=== PATIENT | male | born 1965 | race Caucasian/White ===

== ENCOUNTER 2018-04-23 00:29 | Emergency (ER) | payer OTHER, MEDICAID ==
[2018-04-23] MEDS ORDERED: OLANZapine DISINTEGR 10 MG TAB ONE (00:45)
[2018-04-23 00:46] LABS: PLATELET COUNT 303 10^3/uL (150-400)
[2018-04-23] MEDS ORDERED: OLANZapine DISINTEGR 10 MG TAB PO ONE (00:48)
--- NOTE | 2018-04-23 05:16 | EDPHY ---
H & P Stated Complaint: CP, BI POLAR Source: Patient, EMS Exam Limitations: No limitations - Personal History Current Tetanus/Diphtheria Vaccine: Yes Current Tetanus Diphtheria and Acellular Pertussis (TDAP): Yes - Medical/Surgical History Hx Asthma: No Hx Chronic Respiratory Disease: No Hx Diabetes: No Hx Cardiac Disease: No Hx Renal Disease: No Hx Cirrhosis: No Hx Alcoholism: No Hx HIV/AIDS: No Hx Splenectomy or Spleen Trauma: No Other PMH: BIPOLAR - Social History Smoking Status: Current every day smoker Time Seen by Provider: 04/23/18 00:35 HPI/ROS: HPI The patient presents with bizarre behavior, brought in by paramedics. The patient was found knocking on a stranger's door in the [facility] in [place] just prior to arrival. He reported he pole were chasing him and that he was being followed. He was noted to have pressured speech. 911 was called. The patient says that he is hearing voices. He denies that he is feeling suicidal. He says he is supposed to be taking Zyprexa for bipolar disorder though is not taking it currently. He is reporting migratory chest pain which is sharp in nature to the paramedics.. He has 1 visit to [facility] in July for multiple vague complaints. He has never been to our emergency department before. REVIEW OF SYSTEMS 10 systems were reviewed and negative with the exception of the elements mentioned in the history of present illness. PMHx: Bipolar disorder Soc Hx: Homeless, resides in [place], occasional methamphetamine use per his report, occasional marijuana use PHYSICAL General Appearance: Alert, no distress, disheveled with poor hygiene Eyes: Pupils equal and round no pallor or injection ENT, Mouth: Mucous membranes moist Respiratory: There are no retractions, lungs are clear to auscultation Cardiovascular: Regular rate and rhythm Gastrointestinal: Abdomen is soft and non-tender, no masses, bowel sounds normal Neurological: A&O, moves all extremities Skin: Warm and dry, no rashes Musculoskeletal: Neck is supple non tender Extremities: symmetrical, full range of motion Psychiatric: Patient is mildly agitated, oriented x3, has pressured speech and is complaining that people are chasing him (Cathleen Yoon) Constitutional: Initial Vital Signs Temperature (C) 36.7 C 04/23/18 00:34 Heart Rate 75 04/23/18 00:34 Respiratory Rate 18 04/23/18 00:34 Blood Pressure 117/77 04/23/18 00:34 O2 Sat (%) 97 04/23/18 00:34 O2 Delivery Mode Room Air Allergies/Adverse Reactions: No Known Allergies Allergy (Unverified 04/23/18 00:34) Home Medications: Medication Instructions Recorded Zyprexa 04/23/18 Medical Decision Making ED Course/Re-evaluation: I took over care of this patient at 7:00 a.m.. He is currently here voluntarily. He was knocking on people's doors last night in [place] and displaying bizarre behavior. He has been using methamphetamine. He is to be reassessed when more appropriately sober. 7:30 p.m., this patient is now awake and acting appropriately. He is asking for breakfast. He is not suicidal. He states that he feels comfortable being discharged. He will be re-evaluated again after he eats breakfast. 8:30 a.m., the patient was re-evaluated. He is responding to questions appropriately. He is not suicidal. He feels comfortable being discharged. I discussed the liability of methamphetamine and drug abuse. Follow-up and return to emergency department precautions reviewed with him. All of his questions were answered. He was discharged from the emergency department in good condition. (Bassam Gonzalez) Differential Diagnosis: 52-year-old homeless man with history of bipolar disorder, on Zyprexa presents brought in by ambulance with auditory hallucinations and delusions that people are chasing him, found knocking on a stranger's door after running [place] the [place]. He is not currently on an M1 hold as he is here voluntarily and would like to be evaluated. He is now calm. We have given him a dose of Zyprexa. Labs were checked and did reveal an anion gap acidosis with slight elevated creatinine. I suspect this is related to dehydration and the patient was offered fluids by mouth. Repeat chemistries had normalized with improvement in creatinine an anion gap. U tox was positive for amphetamine and marijuana. He does have a mild leukocytosis which I suspect is a stress response. He is requesting mental health evaluation. In the emergency department, the patient was allowed to rest for several hours. When I interviewed him again at approximately 6:00 a.m. He was more lucid though not appropriate for discharge. I feel most of his symptoms are related to methamphetamine intoxication. We will continue to monitor him here. At 7:00 a.m., I anticipate the case will be signed out to the oncoming provider Dr. Gonzalez. (Cathleen Yoon) - Data Points Laboratory Results: Laboratory Results 04/23/18 00:35 04/23/18 05:26 04/23/18 04/23/18 04/23/18 05:26 00:35 00:35 WBC RBC Hgb Hct MCV MCH MCHC RDW Plt Count MPV Neut % (Auto) Lymph % (Auto) Maury % (Auto) Eos % (Auto) Baso % (Auto) Nucleat RBC Rel Count Absolute Neuts (auto) Absolute Lymphs (auto) Absolute Monos (auto) Absolute Eos (auto) Absolute Basos (auto) Absolute Nucleated RBC Immature Gran % Immature Gran # RBC/WBC/PLT Morphology Platelet Estimate Sodium 139 mEq/L mEq/L 144 mEq/L mEq/L (135-145) (135-145) Potassium 3.5 mEq/L mEq/L 3.3 mEq/L mEq/L (3.3-5.0) (3.3-5.0) Chloride 106 mEq/L mEq/L 106 mEq/L mEq/L (97-110) (97-110) Carbon Dioxide 18 mEq/l L mEq/l 16 mEq/l L mEq/l (22-31) (22-31) Anion Gap 15 mEq/L H mEq/L 22 mEq/L H mEq/L (6-14) (6-14) BUN 33 mg/dL H mg/dL 33 mg/dL H mg/dL (7-23) (7-23) Creatinine 1.2 mg/dL mg/dL 1.6 mg/dL H mg/dL (0.7-1.3) (0.7-1.3) Estimated GFR > 60 45 Glucose 125 mg/dL H mg/dL 95 mg/dL mg/dL (70-100) (70-100) Calcium 9.4 mg/dL mg/dL 9.9 mg/dL mg/dL (8.5-10.4) (8.5-10.4) Urine Opiates Screen NEGATIVE (NEGATIVE) Urine Barbiturates NEGATIVE (NEGATIVE) Ur Phencyclidine Scrn NEGATIVE (NEGATIVE) Ur Amphetamine Screen NON-NEGATIVE H (NEGATIVE) U Benzodiazepines Scrn NEGATIVE (NEGATIVE) Urine Cocaine Screen NEGATIVE (NEGATIVE) U Marijuana (THC) Screen NON-NEGATIVE H (NEGATIVE) Ethyl Alcohol < 10 mg/dL mg/dL (0-10) 04/23/18 00:35 WBC 16.61 10^3/uL H 10^3/uL (3.80-9.50) RBC 5.04 10^6/uL 10^6/uL (4.40-6.38) Hgb 15.5 g/dL g/dL (13.7-17.5) Hct 44.9 % % (40.0-51.0) MCV 89.1 fL fL (81.5-99.8) MCH 30.8 pg pg (27.9-34.1) MCHC 34.5 g/dL g/dL (32.4-36.7) RDW 13.2 % % (11.5-15.2) Plt Count 303 10^3/uL 10^3/uL (150-400) MPV 9.9 fL fL (8.7-11.7) Neut % (Auto) 81.4 % H % (39.3-74.2) Lymph % (Auto) 4.7 % L % (15.0-45.0) Maury % (Auto) 13.1 % H % (4.5-13.0) Eos % (Auto) 0.1 % L % (0.6-7.6) Baso % (Auto) 0.3 % % (0.3-1.7) Nucleat RBC Rel Count 0.0 % % (0.0-0.2) Absolute Neuts (auto) 13.52 10^3/uL H 10^3/uL (1.70-6.50) Absolute Lymphs (auto) 0.78 10^3/uL L 10^3/uL (1.00-3.00) Absolute Monos (auto) 2.18 10^3/uL H 10^3/uL (0.30-0.80) Absolute Eos (auto) 0.02 10^3/uL L 10^3/uL (0.03-0.40) Absolute Basos (auto) 0.05 10^3/uL 10^3/uL (0.02-0.10) Absolute Nucleated RBC 0.00 10^3/uL 10^3/uL (0-0.01) Immature Gran % 0.4 % % (0.0-1.1) Immature Gran # 0.07 10^3/uL 10^3/uL (0.00-0.10) RBC/WBC/PLT Morphology TNP Platelet Estimate TNP Sodium Potassium Chloride Carbon Dioxide Anion Gap BUN Creatinine Estimated GFR Glucose Calcium Urine Opiates Screen Urine Barbiturates Ur Phencyclidine Scrn Ur Amphetamine Screen U Benzodiazepines Scrn Urine Cocaine Screen U Marijuana (THC) Screen Ethyl Alcohol Medications Given: Discontinued Medications Olanzapine (Zyprexa Zydis) 10 mg PO EDNOW ONE Stop: 04/23/18 00:49 Last Admin: 04/23/18 00:49 Dose: 10 mg Departure - Departure Disposition: Home, Routine, Self-Care Clinical Impression: Methamphetamine abuse Bipolar disorder Qualifiers: Active/Remission status: currently active Current bipolar episode type: mixed Current episode severity: unspecified Qualified Code(s): F31.60 - Bipolar disorder, current episode mixed, unspecified Condition: Good Instructions: Methamphetamine Abuse (ED), Bipolar Disorder (ED) Additional Instructions: Read and follow provided instructions. Follow-up with your primary care physician in 1-2 days for re-evaluation as needed. Take your medication as prescribed. Return to the emergency department for worsening symptoms or other serious concerns. Referrals: NONE *PRIMARY CARE P,. [Primary Care Provider] - As per Instructions
[2018-04-23 08:50] VITALS: BP 132/78
== END 2018-04-23 08:50 | disposition home or self-care (01) ==
LOC: EEVIPCON 00:29
DX: F15.10 Other stimulant abuse, uncomplicated (principal); F31.60 Bipolar disorder, current episode mixed, unspecified; F17.200 Nicotine dependence, unspecified, uncomplicated; Z59.0 Homelessness
CPT/HCPCS: 80305; G0480

== ENCOUNTER 2018-05-28 01:59 | Emergency (ER) | payer MEDICAID ==
--- NOTE | 2018-05-28 02:27 | EDPHY ---
H & P Stated Complaint: FEELING COLD Time Seen by Provider: 05/28/18 02:14 HPI/ROS: HPI The patient presents with feeling cold with concern for frostbite, brought in by ambulance from [place] where he is camping outdoors in cold temperatures. He has been sleeping in his tent with boots and socks on. His feet became very cold tonight in his socks were somewhat wet. He developed tingling in both of his feet and called 911. He says he has a large tent which is difficult to heat and he has a hard time staying warm at night. He does not have any foot pain. REVIEW OF SYSTEMS 10 systems were reviewed and negative with the exception of the elements mentioned in the history of present illness. PMHx: Bipolar disorder Soc Hx: Homeless, camping in [place], cigarette smoker PHYSICAL General Appearance: Alert, no distress Eyes: Pupils equal and round no pallor or injection ENT, Mouth: Mucous membranes moist Respiratory: There are no retractions, lungs are clear to auscultation Cardiovascular: Regular rate and rhythm Gastrointestinal: Abdomen is soft and non-tender, no masses, bowel sounds normal Neurological: A&O, moves all extremities Skin: Warm and dry, no rashes Extremities: symmetrical, full range of motion, toes bilaterally are pink, warm , have brisk capillary refill, full range of motion, no rash Psychiatric: Patient is oriented X 3, there is no agitation Source: Patient, EMS Exam Limitations: No limitations - Personal History Current Tetanus Diphtheria and Acellular Pertussis (TDAP): Yes - Medical/Surgical History Hx Asthma: No Hx Chronic Respiratory Disease: No Hx Diabetes: No Hx Cardiac Disease: No Hx Renal Disease: No Hx Cirrhosis: No Hx Alcoholism: No Hx HIV/AIDS: No Hx Splenectomy or Spleen Trauma: No Other PMH: BIPOLAR - Social History Smoking Status: Current every day smoker Constitutional: Initial Vital Signs Temperature (C) 36.6 C 05/28/18 02:02 Heart Rate 100 05/28/18 02:02 Respiratory Rate 16 05/28/18 02:02 Blood Pressure 132/88 H 05/28/18 02:02 O2 Sat (%) 92 05/28/18 02:02 O2 Delivery Mode Room Air Allergies/Adverse Reactions: No Known Allergies Allergy (Unverified 05/28/18 02:01) Home Medications: Medication Instructions Recorded Zyprexa 04/23/18 Medical Decision Making Differential Diagnosis: 52-year-old homeless man presents with paresthesias of his feet, he is concerned about frostbite. Here, his oral temperature is normal. His feet appear normal to me with no signs of frostbite or trench foot. I discussed going to the [facility], wearing warm and dry socks. He will be discharged home. Departure - Departure Disposition: Home, Routine, Self-Care Clinical Impression: Paresthesia of both feet Exposure to environmental cold Qualifiers: Encounter type: initial encounter Qualified Code(s): T69.9XXA - Effect of reduced temperature, unspecified, initial encounter Condition: Good Instructions: Frostbite (ED) Additional Instructions: Please return to the ER if your worse in any way. I do recommend going to the warming [facility] if it is too cold to camp. Referrals: [facility],. [Clinic] - As per Instructions
[2018-05-28 05:23] VITALS: BP 130/84
== END 2018-05-28 05:23 | disposition home or self-care (01) ==
LOC: EDUNIT#
DX: R20.2 Paresthesia of skin (principal); T69.9XXA Effect of reduced temperature, unspecified, initial encounter; X31.XXXA Exposure to excessive natural cold, initial encounter; F32.9 Major depressive disorder, single episode, unspecified; F17.200 Nicotine dependence, unspecified, uncomplicated; Z59.0 Homelessness

== ENCOUNTER 2018-07-27 03:05 | Emergency (ER) | payer MEDICAID ==
--- NOTE | 2018-07-27 03:14 | EDPHY ---
H & P Source: Patient, Police - Medical/Surgical History Hx Asthma: No Hx Chronic Respiratory Disease: No Hx Diabetes: No Hx Cardiac Disease: No Hx Renal Disease: No Hx Cirrhosis: No Hx Alcoholism: No Hx HIV/AIDS: No Hx Splenectomy or Spleen Trauma: No Other PMH: BIPOLAR - Social History Smoking Status: Current every day smoker Time Seen by Provider: 07/27/18 03:14 HPI/ROS: HPI CHIEF COMPLAINT: Paranoid. M1 hold by police. HISTORY OF PRESENT ILLNESS: 52-year-old male, presents to the emergency room by police for being paranoid and has underlying bipolar disorder. He is placed on M1 hold by [facility]. He was up in [place] and was cold and found outside near the school, acting paranoid. He called 911 multiple times stating that people are following him. [facility] Police brought him on an m1 hold. Past Medical History: Significant medical history for bipolar disorder Past Surgical History: No recent surgery Social History: Patient is homeless, smokes tobacco. Family History: Noncontributory ROS REVIEW OF SYSTEMS: 10 Systems were reviewed and negative with the exception of the elements mentioned in the history of present illness. Exam Constitutional triage nursing summary reviewed, vital signs reviewed, awake/ alert. Eyes normal conjunctivae and sclera, EOMI, PERRLA. HENT normal inspection, atraumatic, moist mucus membranes, no epistaxis, neck supple/ no meningismus, no raccoon eyes. Respiratory clear to auscultation bilaterally, normal breath sounds, no respiratory distress, no wheezing. Cardiovascular rate normal, regular rhythm, no murmur, no edema, distal pulses normal. Gastrointestinal soft, non-tender, no rebound, no guarding, normal bowel sounds, no distension, no pulsatile mass. Genitourinary no CVA tenderness. Musculoskeletal no midline vertebral tenderness, full range of motion, no calf swelling, no tenderness of extremities, no meningismus, good pulses, neurovascularly intact. Skin pink, warm, & dry, no rash, skin atraumatic. Neurologic awake, alert and oriented x 3, AAOx3, moves all 4 extremities equally, motor intact, sensory intact, CN II-XII intact, normal cerebellar, normal vision, normal speech. Psychiatric normal mood/affect. Heme/Lymph/Immune no lymphadenopathy. Differential Diagnosis: Includes but is not limited to in a particular order underlying mood disorder, bipolar disorder, paranoia, methamphetamine intoxication Medical Decision Making: Plan for this patient he is on M1 hold by police. He will need blood draw for medical clearance. Will need mental health evaluation this morning. Re-evaluation: Patient's drug screen is positive for marijuana and methamphetamine. 0700AM: No acute events overnight. Patient is on M1 hold. Patient noted be positive for methamphetamine. Will need mental health evaluation later this morning. Signed over at 7:[address] Rodriguez ([facility]) Constitutional: Initial Vital Signs Temperature (C) 36.6 C 07/27/18 03:08 Heart Rate 105 H 07/27/18 03:08 Respiratory Rate 20 07/27/18 03:08 Blood Pressure 128/96 H 07/27/18 03:08 O2 Sat (%) 96 07/27/18 03:08 O2 Delivery Mode Room Air Allergies/Adverse Reactions: No Known Allergies Allergy (Unverified 05/28/18 02:01) Home Medications: Medication Instructions Recorded Zyprexa 04/23/18 Medical Decision Making Other Provider: I assumed care of the patient at 7:00 a.m. in the morning. The patient is turned over to Dr. Hyatt at shift change pending psychiatric disposition. (Ricci Rodriguez) 3:50 p.m. the patient has been evaluated. Dr. Lovett will lift the hold. ( Víctor Hyatt) - Data Points Laboratory Results: Laboratory Results 07/27/18 03:26 07/27/18 03:26 Departure - Departure Disposition: Home, Routine, Self-Care Clinical Impression: Methamphetamine abuse Bipolar disorder Qualifiers: Active/Remission status: currently active Current bipolar episode type: depressed Current episode severity: mild Qualified Code(s): F31.31 - Bipolar disorder, current episode depressed, mild Condition: Good Instructions: Polysubstance Abuse (ED) Referrals: NONE *PRIMARY CARE P,. [Primary Care Provider] - As per Instructions [facility],. [Clinic] - As per Instructions
[2018-07-27 03:38] LABS: PLATELET COUNT 340 10^3/uL (150-400)
--- NOTE | 2018-07-27 16:02 | ASMTTLCEVL ---
TLC Evaluation - Basic Information Evaluation Start Date and 07/27/2018 02:00 PM Time Hospital Status Answers: M1 Hold 72-hr M1 Hold Start Date 07/27/2018 02:00 AM and Time Patient statement Notes: "People are trying to kill me." Narrative Notes: The patient is a 52 y/o male, single, unemployed, with a hx of Schizoaffective d/o, Bipolar type. He is homeless and living in [facility]; occasionally staying in [place]. The patient arrived via EMS on an M1 hold placed by police after patient "Believes he is being followed and going to be killed by voices that followed him around [facility]. Also, believes that people stole his social security info and hacked his phone. Temp and west october 31 degree with strong wind." The patient stated that he "was cold." The patient endorsed chronic suicidal ideation; he denied intent nor does he have a plan. He denied homicidal ideation; he reported that he would have to defend himself if people try to kill him. The patient perseverated on his SSI including financial concerns that his "credentials were stolen." His speech was clear, coherent, and organized. The patient requested to go to [facility] via Medicaid cab. The patient stated commitment or ability to keep self safe and denied thoughts of self harm or harm to others. The patient expressed a desire to f/u with [facility]. At the time of initial utox testing in the ed @ 3:26 the patients was positive for amphetamine and thc. Diagnosis History Notes: The patient reported a dx hx of Schizoaffective d/o, Bipolar type. He reported outpatient treatment with [facility] and [facility]. The patient reported that he knows the voices are "real." Prior suicide attempts Notes: The patient reported "6-7 suicide attempts; most recently "years ago; pills." Prior hospitalizations Notes: The patient endorsed multiple prior hospitalizations for ; most recently "one month ago." Treatment Responses Notes: Unable to assess History of violence Notes: The patient denied any homicidal ideation or previous hx of violence. Therapist: Unknown Psychiatrist: Unknown Medications (name, dosage, route, freq uency) Notes: Zyprexa, 10mg, once daily (HS), PO Allergies/Reaction Notes: No known allergies Sleep Notes: The patient reported that he is "sleeping alot." Appetite Notes: The patient reported that he is "eating alot." Medical/Surgical history Notes: The patient denied any significant medical/surgical hx. Substance use history (frequency, intensity, his tory, duration) Notes: The patient reported that he uses methamphetamine "occasionally." The amount varies; "very little, it doesn't take much... buy a quarter.. do a nickel or a dime. I don't have the tolerance I once did." The last time the patient used meth was "within the last few days." The patient reported using thc daily; a couple of joints. He reported that he last used thc 07/26/18. Family composition Notes: The patient stated, "I don't have any. I don't associate with any." Need for family Answers: No participation in patient's care Family psychiatric/substance abuse history Notes: The patient reported that his "brother and cousin" hx use "anything and everything." The patient reported that his cousin by suicide; overdosing on his medications for Bipolar d/o. Developmental history Notes: The patient denied any developmental issues or learning disabilities. The patient denied ADD or ADHD. The patient denied any TBIs, concussions, or LOC.The patient denied any physical abuse, emotional abuse, or sexual abuse. The patient endorsed having achieved normal developmental milestones. The patient reported that he was raised in [place]. Abuse concerns Answers: None Marital status/children Notes: The patient is single. He reported having children, "way back when" but having "not seen them in years." Living situation Notes: The patient is homeless. Sexual history/orientation Notes: The patient reported he is heterosexual and he is not currently sexually active. Peer support/family strengths Notes: The patient denied having a supportive peer group. Education level/history Notes: The patient's education level/hx are unknown. Work history Notes: The patient is unemployed. The patient receives SSI for his mh dx. Notes: no known affiliation Legal Notes: The patient denied any legal issues. Catholic/Spiritual Notes: The patient reported none that would interfere with treatment. Leisure Notes: The patient stated, "nothing really." Collateral Notes: The collateral data was obtained from current and previous [facility] ed records/staff, 27-65 M1, and [facility] report/records/staff. Patient's strengths Answers: Motivated for Treatment (Please select at least TWO strengths): Willingness [facility] Evaluation - Mental Status Exam Appearance: Answers: Appropriate Unclean Neat Eye Contact: Answers: Avoiding Intermittent Mood: Answers: Elevated Euthymic Affect: Answers: Anxious Calm Guarded Relaxed Behavior: Answers: Appropriate Cooperative Anxious Guarded Talkative Speech: Answers: Relevant Logical Clear Coherent Dramatic Thought Process: Answers: Organized Oriented Alert Goal Oriented Paranoid Tangential Insight: Answers: Fair Judgement: Answers: Fair Hallucinations: Answers: Auditory Delusions: Answers: Paranoid Ideation Current Stage of Change Answers: Precontemplation Pt reported to have Answers: No suicidal/self-injuring ideation/behavior? Pt reported to be making Answers: No suicidal/self-injuring threats? Pt reported to have Answers: No aggression/assault ideation/behavior? Pt reported to be making Answers: No aggression/assault threats? Pt exhibits inability to Answers: No care for self/grave disability? Ideation/behavior is Answers: Yes chronic? Patient has a specific Answers: No plan? Pt has access to means to Answers: No execute the plan? Ideation involves Answers: No serious/lethal intent? Ideation has Answers: Yes delusional/hallucinatory content? History of Answers: Yes suicidal/self-injuring ideation, behavior, or threats? History of Answers: Yes aggressive/assaultive ideation, behavior, or threats? History of serious Answers: No physical harm to self/others while in treatment setting? [facility] Evaluation - Suicide/Homicide Risk Suicide Risk Factors: Answers: < 20 or > 40 Years of Age Financial Difficulties Hx of Suicide Attempt by Family Member Inadequate Social Support Prior Suicide Attempt(s) Schizoaffective Disorder Single Unstable Living Situation Homicide/violence risk Answers: Heavy Drug Use factors: Current Suicidal Answers: No Ideation? Current Suicidal Ideation Answers: Yes in the Past 48 Hours? Current Suicidal Ideation Answers: No in the Past Month? Current Suicidal Answers: No Ideation, Worst Ever? Suicide Internal Answers: Frustration Tolerance Protective Factors: Compa with Stress Suicide External Answers: Positive Therapeutic Protective Factors: Relationships Ranking of patient's Answers: Low suicidal risk: Ranking of patient's Answers: Low homicidal risk: [facility] Evaluation - Wrap-up BDI Total Score: N/A BDI Question #2 Score: N/A BDI Question #9 Score: N/A BSS Total Score: N/A AXIS I Diagnosis (include DSM-V and ICD-10 codes), must also be entered in [employer], which is the source of truth. 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
--- NOTE | 2018-07-27 16:02 | ASMTTCLDSP ---
TLC Discharge Disposition Disposition: Answers: Discharge If Answers: Yes DISCHARGED: Patient/family given suicide hotline info & SAMHSA brochure? Disposition Notes: Notes: The patient stated commitment or ability to keep self safe and denied thoughts of self harm or harm to others. The patient was given local hotline information and SAMSHA brochure after an attempt and encouraged to follow up with [facility]. Discharge Concerns/Recommendations: Notes: In consultation with [facility] ED physician, Brad Rodriguez MD, and on-call psychiatrist, Heidi Lovett MD, both concurred that the patient does not appear to meet 27-65 criteria requiring psychiatric hospitalization as patient does not appear to be an imminent risk of harm to self/others/gravely disabled due to a mental illness condition. Dr. Lovett provided telephone order read back vacating M1 hold at 15:40 hrs. Was patient given the Answers: Not applicable Inpatient Behavioral Health Prohibited Belongings List while in the ED? Psychiatrist vacating M1 Heidi Lovett MD Hold: Date and time M1 hold 07/27/2018 03:40 PM vacated (time format is hh:mm): Type of Hold: Answers: M1/72-hour Hold Hold initiated by: Answers: Police Date Signed: 07/27/2018 03:54 PM Electronically Signed By:Leela Cortez
[2018-07-27 16:15] VITALS: BP 120/67
== END 2018-07-27 16:14 | disposition home or self-care (01) ==
DX: F15.10 Other stimulant abuse, uncomplicated (principal); F31.31 Bipolar disorder, current episode depressed, mild; F12.90 Cannabis use, unspecified, uncomplicated; F17.200 Nicotine dependence, unspecified, uncomplicated
CPT/HCPCS: 80305; G0480

== ENCOUNTER 2018-07-27 23:21 | Emergency (ER) | payer MEDICAID ==
--- NOTE | 2018-07-28 00:34 | EDPHY ---
H & P Stated Complaint: "I TOOK A MEDICAID CAB AND THEY WOULDN'T LET ME IN, NAUSEA Time Seen by Provider: 07/28/18 00:34 HPI/ROS: HPI CHIEF COMPLAINT: Nausea vomiting just discharged. HISTORY OF PRESENT ILLNESS: This is a 52-year-old male, he has a history of schizoaffective disorder bipolar type, homelessness, and was recently here on M1 hold. Patient has a history of doing methamphetamine. He was discharged earlier and took a taxi cab to [facility]. However some reason he was not allowed into the mental health detox center. He took a cab back to the hospital. He initially checked back into the emergency room stating the cab was unable to bring him way was supposed to go. Now he is in ER room 16 he complains of nausea. Denies any other complaints. Plan for this patient p.o. Zofran and p. O. Challenge and observe. He is interested in going to a [facility] tonight. Denies suicidal or homicidal ideation. Past Medical History: Schizoaffective disorder, bipolar Past Surgical History: Denies Social History: Recent methamphetamine use. Homeless. Family History: denies ROS REVIEW OF SYSTEMS: 10 Systems were reviewed and negative with the exception of the elements mentioned in the history of present illness. Exam Constitutional nontoxic triage nursing summary reviewed, vital signs reviewed, awake/alert. Eyes normal conjunctivae and sclera, EOMI, PERRLA. HENT normal inspection, atraumatic, moist mucus membranes, no epistaxis, neck supple/ no meningismus, no raccoon eyes. Respiratory clear to auscultation bilaterally, normal breath sounds, no respiratory distress, no wheezing. Cardiovascular rate normal, regular rhythm, no murmur, no edema, distal pulses normal. Gastrointestinal soft, non-tender, no rebound, no guarding, normal bowel sounds, no distension, no pulsatile mass. Genitourinary no CVA tenderness. Musculoskeletal no midline vertebral tenderness, full range of motion, no calf swelling, no tenderness of extremities, no meningismus, good pulses, neurovascularly intact. Skin pink, warm, & dry, no rash, skin atraumatic. Neurologic awake, alert and oriented x 3, AAOx3, moves all 4 extremities equally, motor intact, sensory intact, CN II-XII intact, normal cerebellar, normal vision, normal speech. Psychiatric normal mood/affect. Heme/Lymph/Immune no lymphadenopathy. Differential Diagnosis: Includes but is not limited to in a particular order underlying bipolar disorder, schizoaffective disorder, homelessness, methamphetamine abuse, dehydration, electrolyte disturbance, acute nausea vomiting, GI illness Medical Decision Making: Plan for this patient ODT Zofran, p.o. Challenge and re-evaluate. Re-evaluation: 0149: Patient received ODT Zofran is feeling much better p.o. Challenge well without any nausea vomiting. He is requesting discharge. Ambulated well. No complaints. Denies any complaints and is requesting discharge. Source: Patient - Personal History Current Tetanus Diphtheria and Acellular Pertussis (TDAP): Unsure - Medical/Surgical History Hx Asthma: No Hx Chronic Respiratory Disease: No Hx Diabetes: No Hx Cardiac Disease: No Hx Renal Disease: No Hx Cirrhosis: No Hx Alcoholism: No Hx HIV/AIDS: No Hx Splenectomy or Spleen Trauma: No Other PMH: BIPOLAR - Social History Smoking Status: Current every day smoker Constitutional: Initial Vital Signs Temperature (C) 36.4 C 07/27/18 23:33 Heart Rate 79 07/27/18 23:33 Respiratory Rate 16 07/27/18 23:33 Blood Pressure 118/84 H 07/27/18 23:33 O2 Sat (%) 97 07/27/18 23:33 O2 Delivery Mode Room Air Allergies/Adverse Reactions: No Known Allergies Allergy (Unverified 05/28/18 02:01) Home Medications: Medication Instructions Recorded Zypvivian 04/23/18 Medical Decision Making - Data Points Medications Given: Discontinued Medications Ondansetron HCl (Zofran Odt) 4 mg PO EDNOW ONE Stop: 07/28/18 00:40 Last Admin: 07/28/18 00:41 Dose: 4 mg Departure - Departure Disposition: Home, Routine, Self-Care Clinical Impression: Nausea Condition: Good Instructions: Acute Nausea and Vomiting (ED) Referrals: NONE *PRIMARY CARE P,. [Primary Care Provider] - As per Instructions
[2018-07-28] MEDS ORDERED: ONDANSETRON DISINTEGRATING 4 MG TAB PO ONE (00:39)
[2018-07-28 01:58] VITALS: BP 118/80
== END 2018-07-28 01:57 | disposition home or self-care (01) ==
DX: R11.0 Nausea (principal)
CPT/HCPCS: 80305; G0480

== ENCOUNTER 2018-09-13 19:58 | Emergency (ER) | payer MEDICAID ==
--- NOTE | 2018-09-13 20:09 | EDPHY ---
H & P Stated Complaint: n/v x1 day, sciatica back pain Time Seen by Provider: 09/13/18 20:08 - Personal History Current Tetanus Diphtheria and Acellular Pertussis (TDAP): Yes Tetanus Vaccine Date: 2013 - Medical/Surgical History Hx Asthma: No Hx Chronic Respiratory Disease: No Hx Diabetes: No Hx Cardiac Disease: No Hx Renal Disease: No Hx Cirrhosis: No Hx Alcoholism: No Hx HIV/AIDS: No Hx Splenectomy or Spleen Trauma: No Other PMH: BIPOLAR, Chronic disc disease, sciatica - Social History Smoking Status: Heavy smoker Constitutional: Initial Vital Signs Temperature (C) 36.4 C 09/13/18 20:05 Heart Rate 67 09/13/18 20:05 Respiratory Rate 17 09/13/18 20:05 Blood Pressure 112/77 09/13/18 20:05 O2 Sat (%) 97 09/13/18 20:05 O2 Delivery Mode Room Air Allergies/Adverse Reactions: No Known Allergies Allergy (Unverified 09/13/18 20:05) Home Medications: Medication Instructions Recorded Zyprexa 04/23/18 Meclizine HCl [Meclizine HCl 25 mg 25 mg PO Q6H #10 tab 09/13/18 (RX,OTC)] Medical Decision Making ED Course/Re-evaluation: CHIEF COMPLAINT: Nausea HISTORY OF PRESENT ILLNESS: The patient is a 53 y/o male complaining of nausea onset this afternoon. He last used meth this morning and is unsure if his symptoms are due to using meth. No fever, headache, body aches, lightheadedness, chest pain, heart palpitations, shortness of breath, cough, abdominal pain, urinary or bowel complaints, numbness, paresthesias. REVIEW OF SYSTEMS: A comprehensive 10 system review of systems is otherwise negative aside from elements mentioned in the history of present illness and medical decision making. PHYSICAL EXAM: HR, BP, O2 Sat, RR. Temp noted General Appearance: Alert, well hydrated, appropriate, and non-toxic appearing. Head: Atraumatic without scalp tenderness or obvious injury Eyes: Pupils equal, round, reactive to light and accommodation, EOMI, no trauma , no injection. Ears: Clear bilaterally, no perforation, normal landmarks Nose: Atraumatic, no rhinorrhea, clear. Throat: There is no erythema or exudates, no lesions, normal tonsils, mucus membranes moist. Neck: Supple, 2+ carotid upstroke, nontender, no lymphadenopathy. Respiratory: No retractions, no distress, no wheezes, and no accessory muscle use. Lungs are clear to auscultation bilaterally. Cardiovascular: Regular rate and rhythm, no murmurs, rubs, or gallops. Bilateral carotid, radial, dorsalis pedis, and posterior tibial pulses intact. Good capillary refill all extremities. Gastrointestinal: Abdomen is soft, nontender, non-distended, no masses, no rebound, no guarding, no peritoneal signs. Musculoskeletal: Normal active ROM of all extremities, atraumatic. Neurological: Alert, appropriate, and interactive. The patient has normal DTRs and non-focal cranial nerves, motor, sensory, and cerebellar exam. Skin: No rashes, good turgor, no nodules on palpation. Past medical history: Meth use, bipolar, sciatica, degenerative disc disease Past surgical history: Denies Family history: Denies Social history: Transient, single, not employed DIAGNOSTICS/PROCEDURES/CRITICAL CARE TIME: Not indicated. DIFFERENTIAL DIAGNOSIS: The differential diagnosis for the patient's nausea included but was not limited to meth withdrawal, gastroenteritis, gastritis, appendicitis, and medication side effect. MEDICAL DECISION MAKING: The patient is a 53 y/o male presenting with nausea onset this afternoon after using meth this morning. He has a normal physical exam. I suspect his symptoms are due to meth withdrawal. Labs and imaging are not indicated. 4mg PO Zofran and 25mg PO Meclizine administered. I have also prescribed him Zofran. Return precautions provided; patient is comfortable with this plan. Departure - Departure Disposition: Home, Routine, Self-Care Clinical Impression: Methamphetamine abuse, Nausea Condition: Good Instructions: Acute Nausea and Vomiting (ED), Methamphetamine Abuse (ED) Additional Instructions: 1. Take Meclizine and Zofran as prescribed. 2. Please refrain from abusing meth. 3. Follow-up with your primary doctor within 72 hours. 4. Return to the Emergency Department for fever, chest pain, shortness of breath , increasing pain or other worsening of condition. Referrals: [facility],. [Clinic] - As per Instructions Prescriptions: Meclizine HCl [Meclizine HCl 25 mg (RX,OTC)] 25 mg PO Q6H #10 tab Report Scribed for: Pancho Eid Report Scribed by: Ayla Valdez Date of Report: 09/13/18 Time of Report: 20:17
[2018-09-13] MEDS ORDERED: MECLIZINE HCL 25 MG TAB PO ONE (20:11)
[2018-09-13] MEDS ORDERED: ONDANSETRON DISINTEGRATING 4 MG TAB PO ONE (20:11)
[2018-09-13] MEDS ORDERED: ONDANSETRON 4MG PREPACK#2 BTL TAKEHOME ONE (20:12)
[2018-09-13] MEDS ORDERED: LIDOCAINE 4%/MENTHOL 1% PATCH TD ONE (20:24)
[2018-09-13 20:38] VITALS: BP 112/79
[2018-09-13] MEDS ORDERED: PATCH REMOVAL 1 EA PATCH TD SCH (21:00)
== END 2018-09-13 20:51 | disposition home or self-care (01) ==
DX: R11.2 Nausea with vomiting, unspecified (principal); F15.120 Other stimulant abuse with intoxication, uncomplicated

== ENCOUNTER 2018-11-06 01:57 | Emergency (ER) | payer MEDICAID ==
[2018-11-06 02:02] VITALS: BP 141/95
[2018-11-06] MEDS ORDERED: IBUPROFEN 600 MG TAB PO ONE (02:11)
--- NOTE | 2018-11-06 02:15 | EDPHY ---
H & P Stated Complaint: back pain and nausea Time Seen by Provider: 11/06/18 02:07 HPI/ROS: Chief Complaint: Sciatic back pain HPI: 53-year-old male complaining of right sciatic back pain. He has a history of static pain in the past. Patient states that while in [place] today he slipped on some ice and twisted his back. He did not fall the ground. He did not hit his head. No new trauma. No new numbness or weakness. No difficulty urinating or having a bowel movement. He has been ambulating unassisted. He has not taken any medications for this. He is currently homeless. Does smoke. Denies alcohol. Does use marijuana and methamphetamines. Last used meth 3 days ago. No headache. No abdominal pain. No extremity injuries. He is on a narcotic care plan in this hospital. Patient also states he ran out of his albuterol inhaler is requesting a prescription. ROS: 10 systems were reviewed and were negative except those elements noted in the HPI. PMH: Sciatic back pain, asthma Social History: Positive smoking, no alcohol, occasional marijuana and methamphetamine Family History: non-contributory Physical Exam: Gen: Awake, Alert, No Distress HEENT: Nose: no rhinorrhea Eyes: PERRLA, EOMI Mouth: Moist mucosa Neck: Supple, no JVD Chest: nontender, lungs clear to auscultation Heart: S1, S2 normal, no murmur Abd: Soft, non-tender, no guarding Back: no CVA tenderness, no midline tenderness Ext: no edema, non-tender Skin: no rash Neuro: CN II-XII intact, Sensation grossly intact, Strength 5/5 in bilateral upper and lower extremities, normal dorsiflexion and plantar flexion. Normal straight leg lays. Sensations intact in all dermatomes. - Personal History Current Tetanus/Diphtheria Vaccine: Yes Current Tetanus Diphtheria and Acellular Pertussis (TDAP): Yes Tetanus Vaccine Date: 2013 - Medical/Surgical History Hx Asthma: No Hx Chronic Respiratory Disease: No Hx Diabetes: No Hx Cardiac Disease: No Hx Renal Disease: No Hx Cirrhosis: No Hx Alcoholism: No Hx HIV/AIDS: No Hx Splenectomy or Spleen Trauma: No Other PMH: BIPOLAR, Chronic disc disease, sciatica - Social History Smoking Status: Heavy smoker Constitutional: Initial Vital Signs Temperature (C) 36.6 C 11/06/18 01:59 Heart Rate 99 11/06/18 01:59 Respiratory Rate 16 11/06/18 01:59 Blood Pressure 141/95 H 11/06/18 01:59 O2 Sat (%) 94 11/06/18 01:59 O2 Delivery Mode Room Air Allergies/Adverse Reactions: No Known Allergies Allergy (Verified 11/06/18 02:02) Home Medications: Medication Instructions Recorded Zyprexa 04/23/18 Albuterol 5 mg/ml INH 11/06/18 Medical Decision Making ED Course/Re-evaluation: 53-year-old male complaining of exacerbation of chronic back pain. He is completely neurologically intact. He has not have any red flags for epidural abscess or cauda equina. He is not appear in any discomfort. He is ambulating without any difficulty. Will treat with ibuprofen. Follow up with [facility]. Departure - Departure Disposition: Home, Routine, Self-Care Clinical Impression: Back pain Condition: Good Instructions: Chronic Back Pain (DC), Lower Back Exercises (ED) Additional Instructions: Take ibuprofen, 600 mg, 3 times a day. You may also take acetaminophen, 1000 mg every 6 hours. Apply ice for 15 minutes of every hour while awake. Make sure to remain active. Did do not lay in bed or sit in a chair for long periods. Avoid heavy lifting or bending at work until cleared by your physician. Please see the attached back exercise instructions. Follow up with your primary care physician in 2-3 days for further evaluation. Referrals: [facility],. [Clinic] - As per Instructions
== END 2018-11-06 02:18 | disposition home or self-care (01) ==
DX: M54.41 Lumbago with sciatica, right side (principal); R11.0 Nausea; J45.909 Unspecified asthma, uncomplicated; F17.200 Nicotine dependence, unspecified, uncomplicated; F12.90 Cannabis use, unspecified, uncomplicated; F15.10 Other stimulant abuse, uncomplicated; Z59.0 Homelessness